=== PATIENT | male | born 1975 | race Caucasian/White ===

== ENCOUNTER 2017-06-29 17:04 | Emergency (ER) | payer OTHER, MEDICAID ==
[~2017-06-29] VITALS: Ht 188 cm; Wt 109.5 kg
[2017-06-29] MEDS ORDERED: LIDOCAINE 1%, 10ML ONE (17:52)
[2017-06-29] MEDS ORDERED: HYDROmorphone 1 MG/ML, 1ML IM ONE (18:00)
[2017-06-29] MEDS ORDERED: LIDOCAINE 1%, 20ML SQ ONE (18:00)
[2017-06-29] MEDS ORDERED: HYDROmorphone 2 MG/ML, 1ML ONE (18:14)
[2017-06-29] MEDS ORDERED: PLEASE ENTER ALLERGIES MC SCH ×2 (18:30)
[2017-06-29 18:50] VITALS: BP 128/80
[2017-06-29] MEDS ORDERED: PROMETHAZINE 25 MG/ML, 1ML IM ONE (20:00)
[2017-06-29] MEDS ORDERED: PROMETHAZINE 25 MG/ML, 1ML ONE (20:02)
== END 2017-06-29 20:53 ==
LOC: ED 20:24
DX: K64.5 Perianal venous thrombosis (principal)
CPT/HCPCS: 46083; 96372; 99285; J1170; J2550